=== PATIENT | male | born 1930 | race Caucasian/White ===

== ENCOUNTER → 2018-11-30 | Outpatient (CLI) | payer MEDICARE, OTHER ==
[2016-02-20 16:52] VITALS: BP 121/73
[~2018-11-30] MED LIST: FLUT9.9S NS; LISI1TAB5 PO; VIT1CAPS12 PO
--- NOTE | 2018-11-30 17:27 | RAD ---
Ultrasound venous Doppler INDICATION:LT KNEE PAIN TECHNIQUE: Grayscale, color Doppler and spectral waveform ultrasound images of the left lower extremity deep veins obtained. COMPARISON: None FINDINGS: The interrogated deep veins are compressible and demonstrate evidence of blood flow with normal respiratory variation and response to augmentation. IMPRESSION: No sonographic evidence of acute DVT of the left lower extremity deep veins. Electronically signed by: Karsten Knight DO (11/30/2018 5:23 PM) [facility]
--- NOTE | 2018-11-30 18:44 | RAD ---
Three-view left knee radiographs 11/30/2018 CLINICAL HISTORY: Left knee pain. AP, lateral and oblique digital radiographs of the left knee were obtained. No fracture or dislocation of the left knee is seen. Mild to moderate degenerative changes are seen involving all 3 compartments of the left knee. These consist of varying degrees of joint compartment narrowing, subchondral sclerosis and associated osteophyte formation. Chondrocalcinosis is seen involving the medial and lateral compartments. No significant joint effusion is seen. Atherosclerotic calcification is seen involving the left popliteal artery. IMPRESSION: Degenerative changes are seen involving left knee as outlined above. No acute osseous abnormality is seen. Electronically signed by: Laz Bansal MD (11/30/2018 6:40 PM) [id number]
== END | disposition home or self-care (01) ==
LOC: US 16:15
PROVIDERS: ATTEND Family Medicine
DX: M17.12 Unilateral primary osteoarthritis, left knee (principal); I70.292 Other atherosclerosis of native arteries of extremities, left leg; M25.762 Osteophyte, left knee; M11.262 Other chondrocalcinosis, left knee
CPT/HCPCS: 73562; 93971

== ENCOUNTER 2020-01-16 07:56 | Emergency (ER) | payer MEDICARE ==
[~2020-01-16] VITALS: Ht 188 cm; Wt 85.2 kg
[~2020-01-16 07:56] MED LIST changes: +LISI1TAB19 PO; -LISI1TAB5 PO
[2020-01-16 08:12] VITALS: BP 135/65
[2020-01-16] MEDS ORDERED: DIPHTH,PERTUSS(ACELL),TET TOX 0.5 ML DISP.SYRIN. VAX IM ONE (08:30)
--- NOTE | 2020-01-16 08:42 | PHYS DOC ---
Past Medical History Past Medical History: Hypertension Additional Past Medical Histor: SKIN CA Additional Past Surgical Histo: SKIN CA, BACK SX. Smoking Status: Former Smoker Alcohol Use: Heavy Additional Information: 1 BEER DAILY Adult General Chief Complaint Chief Complaint: FOOT INJURY PAIN [facility] HPI Patient is a 89 year old male with history of hypertension and skin cancer without taking anticoagulation medication who presents with complaint of 2 injury. Patient states he hit his right great toe at 3 AM and since then has had bleeding from the nail bed. Patient rated his pain as a moderate pain. Patient denies other injuries and focal neurodeficit. Patient does not remember his last tetanus summarization. Review of Systems Review of Systems Constitutional: Denies fever or chills [] Eyes: Denies change in visual acuity, redness, or eye pain [] HENT: Denies nasal congestion or sore throat [] Respiratory: Denies cough or shortness of breath [] Cardiovascular: No additional information not addressed in HPI [] GI: Denies abdominal pain, nausea, vomiting, bloody stools or diarrhea [] : Denies dysuria or hematuria [] Musculoskeletal: Denies back pain, reports joint pain [] Integument: Denies rash or skin lesions [] Neurologic: Denies headache, focal weakness or sensory changes [] Endocrine: Denies polyuria or polydipsia [] All other systems were reviewed and found to be within normal limits, except as documented in this note. Current Medications Current Medications Current Medications Medications (Trade) Dose Ordered Sig/Becky Start Time Stop Time Status Last Admin Dose Admin Diphtheria/ Tetanus/Acell Pertussis (Boostrix) 0.5 ml ONCE ONCE 01/16/20 08:30 01/16/20 08:31 DC 01/16/20 09:13 0.5 ML Allergies Allergies Allergies Coded Allergies Type Severity Reaction Last Updated Verified No Known Allergies Allergy Unknown 02/20/16 Yes Physical Exam Physical Exam Constitutional: Well developed, well nourished, mild distress, non-toxic appearance. [] HENT: Normocephalic, atraumatic. Eyes: PERRLA, EOMI, conjunctiva normal, no discharge. [] Neck: Normal range of motion, no tenderness, supple, no stridor. [] Cardiovascular:Heart rate regular rhythm, no murmur [] Lungs & Thorax: Bilateral breath sounds clear to auscultation [] Extremities: Right great toe with mild edema and bleeding from proximal antonio bed without ecchymoses or obvious laceration, no cyanosis, no clubbing, ROM intact. Neurologic: Alert and oriented X 3, no focal deficits noted. [] Psychologic: Affect normal, judgement normal, mood normal. [] Current Patient Data Vital Signs Vital Signs Date Time Temp Pulse Resp B/P (MAP) Pulse Ox O2 Delivery O2 Flow Rate FiO2 01/16/20 08:12 97.8 80 16 135/65 (88) 99 Room Air 97.8 EKG EKG [] Radiology/Procedures Radiology/Procedures [facility] [address] [place] [address] IMAGING REPORT Signed PATIENT: SUZANNA HALE DACCOUNT: [id number] : 1930 LOCATION: ER AGE: 89 SEX: M EXAM STATUS: REG ER ORD. PHYSICIAN: ROSIE LONGORIA MD REASON: great toe injury PROCEDURE: TOES RIGHT TOES RIGHT DATE: 01/16/2020 8:32 AM INDICATION: Great toe injury COMPARISON: None. FINDINGS: Bones: Acute nondisplaced fracture of the first distal phalanx base with extension into the IP joint. Joints: Mild degenerative changes of the first MTP and IP joints. Miscellaneous: None. IMPRESSION: Acute nondisplaced fracture of the first distal phalanx base with extension into the IP joint Electronically signed by: Desean Wade MD (01/16/2020 8:53 AM) [id number] DICTATED and SIGNED BY: DESEAN WADE MD DATE: 01/16/20 0853 Course & Med Decision Making Course & Med Decision Making Pertinent Imaging studies reviewed. (See chart for details) Evaluation of patient in ER showed 89-year-old male patient with injury to right great toe earlier today. X-ray showed nondisplaced fracture of proximal distal phalanx. Non-adhesive dressing and guy tape was applied and after she was provided and patient was advised to follow-up with orthopedist on-call physician. I've spoken with the patient and/or caregivers. I've explained the patient's condition, diagnosis and treatment plan based on information available to me at this time. I've answered the patient's and/or caregivers questions and addressed any concerns. The patient and/or caregivers have a good understanding the patient's diagnosis, condition and treatment plan as can be expected at this point. Vital signs have been stabilized. The patient's condition is stable for discharge from the emergency department. The patient will pursue further outpatient evaluation with her primary care provider or other designated consulting physician as outlined in the discharge instructions. Patient and/or caregivers are agreeable to this plan of care and follow-up instructions have been explained in detail. The patient and/or caregivers have received these instructions in written format and expressed understanding of these discharge instructions. The patient and her caregivers are aware that if any significant change in condition or worsening of symptoms should prompt him to immediately return to this of the closest emergency department. If an emergent department is not readily available I would encourage him to call 911. Dragon Disclaimer Dragon Disclaimer This electronic medical record was generated, in whole or in part, using a voice recognition dictation system. Departure Departure Impression: Primary Impression: Nondisplaced fracture of phalanx of toe of right foot Additional Impressions: Nailbed avulsion Contusion of nailbed of toe Disposition: HOME, SELF-CARE (at 0905) Condition: IMPROVED Referrals: UNKNOWN PCP NAME (PCP) CHRISSY ROMERO MD Patient Instructions: Guy Taping of Toes, Nail Bed Injury, Toe Fracture Additional Instructions: Apply ice on the affected area Follow-up with your primary care physician in 3-5 days Return to ER if not getting better Follow-up with orthopedic physician in 2-3 days. Thank you for visiting [facility]. We appreciate you trusting us with your care. If any additional problems come up don't hesitate to return to visit us. Please follow up with your primary care provider so they can plan additional care if needed and know about the problem that you had. If symptoms worsen come back to the Emergency Department. Any concerning symptoms that start such as chest pain, shortness of air, weakness or numbness on one side of the body, running high fevers or any other concerning symptoms return to the ER. Scripts Tramadol Hcl (ULTRAM) 50 Mg Tablet 50 MG PO Q6HRS PRN for PAIN, #14 TAB 0 Refills Prov: ROSIE LONGORIA MD 01/16/20 Problem Qualifiers Primary Impression: Nondisplaced fracture of phalanx of toe of right foot Encounter type: initial encounter Toe: great toe Fracture type: closed Phalanx: distal Qualified Codes: S92.424A - Nondisplaced fracture of dista l phalanx of right great toe, initial encounter for closed fracture ROSIE LONGORIA MD Jan 16, 2020 08:42
--- NOTE | 2020-01-16 08:57 | RAD ---
TOES RIGHT DATE: 01/16/2020 8:32 AM INDICATION: Great toe injury COMPARISON: None. FINDINGS: Bones: Acute nondisplaced fracture of the first distal phalanx base with extension into the IP joint. Joints: Mild degenerative changes of the first MTP and IP joints. Miscellaneous: None. IMPRESSION: Acute nondisplaced fracture of the first distal phalanx base with extension into the IP joint Electronically signed by: Micky Wade MD (01/16/2020 8:53 AM) [id number]
[2020-01-16] MEDS ORDERED: TRAM-48 PO (09:08)
== END 2020-01-16 09:50 | disposition home or self-care (01) ==
LOC: ER 07:56
DX: S92.424A Nondisplaced fracture of distal phalanx of right great toe, initial encounter for closed fracture (principal); I10 Essential (primary) hypertension; Z87.891 Personal history of nicotine dependence; F10.20 Alcohol dependence, uncomplicated; Y90.9 Presence of alcohol in blood, level not specified; Z98.890 Other specified postprocedural states; W01.0XXA Fall on same level from slipping, tripping and stumbling without subsequent striking against object, initial encounter; Y93.89 Activity, other specified; Y92.89 Other specified places as the place of occurrence of the external cause; Y99.8 Other external cause status
CPT/HCPCS: 73660; 90471; 90715; 99284